=== PATIENT | female | born 1980 | race Caucasian/White ===

== ENCOUNTER 2018-01-02 11:23 | Outpatient (CLI) | payer BC | END 2018-01-02 11:24 | disposition home or self-care (01) | LOC: BICMAMMO 11:23 | PROVIDERS: ATTEND Obstetrics & Gynecology | DX: Z12.31 Encounter for screening mammogram for malignant neoplasm of breast (principal); Z80.3 Family history of malignant neoplasm of breast | CPT/HCPCS: 77063; 77067 ==

== ENCOUNTER 2020-06-13 07:43 | Outpatient (CLI) | payer BC ==
[2020-06-13 08:13] LABS: BHCG - Serum Negative (NEGATIVE); Pregs Control Background? CLEAR/WHITE (CLR/WHITE); Pregs Control Bar Appear? YES (CONTROL BAR)
[2020-06-13] MEDS ORDERED: Iopamidol 300 61% 50 ML VIAL FS ONE (14:18)
--- NOTE | 2020-06-13 15:53 | RAD ---
Hysterosalpingogram: 06/13/2020 HISTORY: 40-year-old female with infertility "ICD-10: Z 31.9, Encounter for procreative management, unspecified" TECHNIQUE: Signed informed consent obtained. Standard sterile technique. After placement of speculum into vagina l cavity, external os of cervix swabbed with Betadine with content applicators x2. HSG catheter advanced through external os into the endometrial cavity. Balloon inflated. Contrast injected under b rief, intermittent fluoroscopy. Balloon deflated. Catheter and speculum were removed. Patient tolerated procedure well. No complications. FINDINGS: Endometrial cavity has normal size and shape, with no filling defects. Bilateral fallopian tubes are normal in caliber. Free intraperitoneal spillage of contrast material, definitely from the right side, and probably also from the left side. IMPRESSION: 1.) Definite patency of right fallopian tube. 2.) Probable patency of left fallopian tube. 3) no pathology identified.
== END 2020-06-13 07:44 | disposition home or self-care (01) ==
LOC: RAD 07:43
PROVIDERS: ATTEND Obstetrics & Gynecology
DX: Z31.9 Encounter for procreative management, unspecified (principal)
CPT/HCPCS: 36415; 58340; 74740; 84703; Q9967

== ENCOUNTER → 2021-11-03 | Day surgery (SDC) | payer BC | END | disposition home or self-care (01) | LOC: MAMMO 07:09 | PROVIDERS: ATTEND Obstetrics & Gynecology | PROC: 0H9U3ZX Drainage of Left Breast, Percutaneous Approach, Diagnostic (ICD-10-PCS; principal; 2021-11-03) | DX: C50.812 Malignant neoplasm of overlapping sites of left female breast (principal) | CPT/HCPCS: 19081; 76098; 88305 ==